=== PATIENT | male | born 1975 | race Caucasian/White ===

== ENCOUNTER 2020-10-30 22:38 | Emergency (ER) | payer OTHER ==
[2020-10-31 00:55] LABS: HEMOGLOBIN 17.3 gm/dl (14.0-17.5); RED BLOOD COUNT 5.78 M/UL (4.20-5.50)
[2020-10-31 01:11] LABS: BUN/CREATININE RATIO 21 (0-10)
== END 2020-10-31 02:41 | disposition home or self-care (01) ==
LOC: ER1 22:38
PROVIDERS: Internal Medicine
DX: U07.1 COVID-19 (principal); R55 Syncope and collapse; Z91.013 Allergy to seafood
CPT/HCPCS: 71045; 80053; 85025; 94760; 99283; J0461